=== PATIENT | female | born 1980 | race Caucasian/White ===

== ENCOUNTER 2022-03-29 08:57 | Outpatient (CLI) | payer BC | END 2022-03-29 08:58 | disposition home or self-care (01) | LOC: RAD-FRANK 08:57 | PROVIDERS: ATTEND Nurse Practitioner Family | DX: R10.13 Epigastric pain (principal) | CPT/HCPCS: 74018 ==

== ENCOUNTER 2022-04-15 07:03 | Outpatient (CLI) | payer BC | END 2022-04-15 07:04 | disposition home or self-care (01) | LOC: BICULT 07:03 | PROVIDERS: ATTEND Nurse Practitioner Family | DX: R10.13 Epigastric pain (principal) | CPT/HCPCS: 76700 ==